=== PATIENT | female | born 1985 | race American Indian/Alaskan Native ===

== ENCOUNTER 2018-07-28 20:55 | Emergency (ER) | payer BC, OTHER ==
[2018-07-28 22:35] VITALS: BP 111/61; TEMP 98.2; BMI 35.3
--- NOTE | 2018-07-29 00:30 | ED PDOC ---
Arrival/HPI - General Chief Complaint: Eye Problem Time Seen by Provider: 07/28/18 21:14 Historian: Patient - History of Present Illness Narrative History of Present Illness (Text): 07/29/18 04:28 32 y/o female with no significant PMH presents to the ED c/o facial erythema and eye redness x 1 day. Pt states that after she ate at an [place] restaurant last night, she vomited once, nonbloody/nonbillious and then noticed erythema to face and spots of redness in her eyes. Pt has not taken any medication for her symptoms. Associated mild pruritis of skin on face and neck. Denies any known allergies, new foods/lotions/detergents. Denies fever, chills, photophobis, vision changes, dizziness, throat/lip/mouth swelling, SOB, abdominal pain, or any other associated symptoms. Past Medical History - Provider Review Nursing Documentation Reviewed: Yes - Infectious Disease Hx of Infectious Diseases: None - Tetanus Immunization Tetanus Immunization: Unknown - Past Medical History Past Medical History: No Previous - Pulmonary Hx Respiratory Disorders: No - Neurological Hx Neurological Disorder: No - HEENT Hx HEENT Disorder: No - Renal Hx Renal Disorder: No - Endocrine/Metabolic Hx Endocrine Disorders: No - Hematological/Oncological Hx Blood Disorders: No - Integumentary Hx Dermatological Disorder: No - Musculoskeletal/Rheumatological Hx Musculoskeletal Disorders: No - Gastrointestinal Hx Gastrointestinal Disorders: No - Genitourinary/Gynecological Hx Genitourinary Disorders: No - Psychiatric Hx Depression: No Hx Emotional Abuse: No Hx Physical Abuse: No Hx Substance Use: No - Past Surgical History Past Surgical History: No Previous - Suicidal Assessment Feels Threatened In Home Enviroment: No Family/Social History - Physician Review Nursing Documentation Reviewed: Yes Family/Social History: No Known Family HX Smoking Status: Never Smoked Hx Alcohol Use: No Hx Substance Use: No Hx Substance Use Treatment: No Allergies/Home Meds Allergies/Adverse Reactions: Allergies No Known Allergies Allergy (Verified 08/20/11 22:45) Home Medications: Home Meds Medication Instructions Recorded Confirmed APAP/Dm Hydrobrom/Phenyleph 1 tab PO PRN PRN 03/05/14 03/05/14 [Theraflu Daytime Severe Cold & Cough 325 mg-1] Review of Systems - Review of Systems Constitutional: Normal. absent: Fevers Eyes: Other (eye redness). absent: Vision Changes, Photophobia, Eye Pain ENT: Normal. absent: Hearing Changes, Sore Throat, Sinus Congestion Respiratory: Normal. absent: SOB, Cough Cardiovascular: Normal. absent: Chest Pain, Palpitations, Syncope Gastrointestinal: Vomiting. absent: Abdominal Pain, Stool Changes, Appetite Changes Genitourinary Female: Normal. absent: Dysuria, Frequency Musculoskeletal: Normal. absent: Back Pain, Neck Pain Skin: Other (facial erythema) Neurological: Normal. absent: Headache, Dizziness Physical Exam Vital Signs Reviewed: Yes Vital Signs Temp Pulse Resp BP Pulse Ox 07/28/18 22:24 98.2 F 72 17 111/61 100 Temperature: Afebrile Blood Pressure: Normal Pulse: Regular Respiratory Rate: Normal Appearance: Positive for: Well-Appearing, Non-Toxic, Comfortable Pain Distress: None Mental Status: Positive for: Alert and Oriented X 3 - Systems Exam Head: Present: Atraumatic, Normocephalic, Other (see skin exam) Pupils: Present: PERRL Extroacular Muscles: Present: EOMI Conjunctiva: Present: Other (small subjuntival hemorrhages bilaterally) Mouth: Present: Moist Mucous Membranes. No: Normal Lips (no swelling), Normal Tounge (no swelling) Neck: Present: Normal Range of Motion. No: Meningeal Signs Respiratory/Chest: Present: Clear to Auscultation, Good Air Exchange. No: Respiratory Distress, Accessory Muscle Use Cardiovascular: Present: Regular Rate and Rhythm, Normal S1, S2, Peripheal Pulses Present Abdomen: No: Tenderness, Distention Back: Present: Normal Inspection Upper Extremity: Present: Normal Inspection, Normal ROM. No: Cyanosis, Edema Lower Extremity: Present: Normal Inspection, Normal ROM. No: Edema Neurological: Present: GCS=15, CN II-XII Intact, Speech Normal, Motor Func Grossly Intact, Normal Sensory Function, Gait Normal Skin: Present: Warm, Dry, Erythematous (face and chest; no urticaria visualized) Psychiatric: Present: Alert, Oriented x 3, Normal Insight, Normal Concentration, Normal Affect, Normal Mood Medical Decision Making ED Course and Treatment: Initial Plan: * Prednisone, Pepcid, Benadryl Pt most likely with allergic skin reaction and sobconjunctival hemorrhages from vomiting yesterday. Will treat with steroids. Lungs CTA and no facial/throat/lip/tongue swelling noted. No intraoral lesions. No change in vision. Advised PMD followup. Diagnostic testing results and plan of care discussed with patient. Strict instructions given regarding prescription use, importance of followup, and signs/symptoms to return to ER including throat/lip/mouth swelling, SOB, visual changes, or any other new/worsening symptoms. Pt verbalized understanding of discussion. Patient is A&Ox3, ambulating with steady gait, with vital signs stable for discharge. - Medication Orders Current Medication Orders: Discontinued Medications Diphenhydramine HCl (Benadryl) 25 mg PO ONCE ONE Stop: 07/28/18 23:23 Last Admin: 07/28/18 23:31 Dose: 25 mg Famotidine (Pepcid) 20 mg PO STAT STA Stop: 07/28/18 23:23 Last Admin: 07/28/18 23:31 Dose: 20 mg Prednisone (Prednisone Tab) 60 mg PO STAT ONE Stop: 07/28/18 23:23 Last Admin: 07/28/18 23:31 Dose: 60 mg Disposition/Present on Arrival - Present on Arrival Any Indicators Present on Arrival: No History of DVT/PE: No History of Uncontrolled Diabetes: No Urinary Catheter: No History of Decub. Ulcer: No History Surgical Site Infection Following: None - Disposition Have Diagnosis and Disposition been Completed?: Yes Diagnosis: Subconjunctival hemorrhage, Allergic reaction Disposition: HOME/ ROUTINE Disposition Time: 00:00 Patient Plan: Discharge Condition: IMPROVED Discharge Instructions (ExitCare): Subconjunctival Hemorrhage, Allergy Skin Testing Additional Instructions: Prednisone daily for 4 more days Pepcid every 12 hours Benadryl every 6 hours as needed Increase fluids Rest, no strenuous activity Followup with primary doctor tomorrow Return to ER with any new/worsening symptoms Prescriptions: DiphenhydrAMINE [Benadryl] 25 mg PO Q6 PRN #24 cap PRN Reason: itch Famotidine [Pepcid] 20 mg PO Q12H #14 tab predniSONE [predniSONE Tab] 40 mg PO DAILY #8 tab Referrals: PCP,NO [Primary Care Provider] - Follow up with primary Forms: [facility] ([place]), WORK NOTE
[2018-07-29 00:46] VITALS: PULSE 70; RESP 18; O2SAT 98
== END 2018-07-29 00:46 | disposition home or self-care (01) ==
LOC: ED 20:55
DX: H11.30 Conjunctival hemorrhage, unspecified eye (principal); T78.40XA Allergy, unspecified, initial encounter; X58.XXXA Exposure to other specified factors, initial encounter